=== PATIENT | male | born 1980 | race Caucasian/White ===

== ENCOUNTER 2023-04-18 09:31 | Emergency (ER) | payer BC, SELFPAY ==
[2023-04-18 09:48] VITALS: BP 157/100
[2023-04-18] MEDS: TORADOL 30 MG IM (10:38)
[2023-04-18 10:39] VITALS: BMI 26.1
[2023-04-18 12:13] VITALS: BP 146/93
--- NOTE | 2023-04-18 13:25 | ED.GENMED ---
History of Present Illness
General
Chief Complaint: Musculo-Skeletal Complaint
Source: patient
Exam Limitations: none
Time Seen by Provider: 04/18/23 09:56
Nursing documentation reviewed up to this point in time: agreed with
Travel History
Have you had any contact with someone who has COVID-19?: No
Do you have any symptoms of coronavirus? Fever > 100 degrees, chills, cough, shortness of breath, sore throat, loss of taste or smell, muscle aches, or headache?: No
History of Present Illness
History of Present Illness:
43 y/o M with h/o previous disc herniation lumbar (mri 15 years ago, had PT and pain got better)
2 weeks atraumatic left calf and knee pain
feels like an ache and sometimes burning pain; also sometimes has tingling to great toe on left foot
no fever, chills, incontinence, weakness, inabilty to walk, color change
the pain is worst with sitting
better with walking
had trouble sleeping last nght
went to PCP yesteray and got Medrol dose adry, tramadol and rx for mri which he got approved.
Past History
Past History
ED Past Medical History: Other (lumbar disc herniation)
ED Past Surgical History: None
Social History
Tobacco: Non-smoker
Drug: None
Personal:
Living: with family
Employment: Employed
Review of Systems
Review of Systems
Allergies reviewed?: Yes
All Other Systems: Not applicable
Phy Exam
Physical Exam
Physical Exam:
GENERAL: Alert , in no apparent distress, comfortable at rest
HEAD: NCAT
CARDIAC: Regular rate and rhythm, no edema, 2+ dp pulse
LUNGS: Clear breath sounds bilaterally, no acute respiratory distress, no wheezes/rales/rhonchi
ABDOMEN: Soft, without focal tenderness, no r/g, no cvat, normal bowel sounds, nondistended
NEUROLOGICAL: Alert and oriented, no focal neuro deficits, CN intact, 5/5 strength, sensation intact, able to ambulat, sensation grossyl intact
SKIN: Warm and dry, skin of lower leg normal
MUSCULOSKELETAL: No edema, well perfused. Normal inspection of the left hip, left leg
Patient has no tenderness to palpation of the hip, minimal tenderness in the SI joint
able to flex left hip an rotate without pain
Back: No midline tenderness, no swelling
pain in left back with straight leg raise on L
PSYCH: Normal and appropriate interaction.
Course
Orders/Labs/Results
Orders:
Orders
04/18/23 10:18
Lumbar Spine Complete, 4 View [CR Lumbar Spine Comp Min 4 Vw*] Urgent
Comment:
Reason For Exam: lower back pain
04/18/23 10:21
Tib/Fib, Left 2 View [CR Leg Tibia/fibula Left 2 Vw] Urgent
Comment:
Reason For Exam: left lower leg pain, no trauma
04/18/23 10:22
Ketorolac [Toradol] 30 mg IM NOW STA
04/18/23 10:51
Venous Doppler Lwr Ext Left [US Periph Venous LOWER Ext LT] Urgent
Comment:
Reason For Exam: left leg pain
Vital Signs
Initial and Last Documented VS:
Initial Vital Signs
Temp Pulse Resp BP Pulse Ox
97.7 F 83 14 157/100 100
04/18/23 09:48 04/18/23 09:48 04/18/23 09:48 04/18/23 09:48 04/18/23 09:48
Last Documented Vital Signs
Temp Pulse Resp BP Pulse Ox
97.7 F 64 16 146/93 98
04/18/23 09:48 04/18/23 12:13 04/18/23 12:13 04/18/23 12:13 04/18/23 12:13
MDM/Problems Addressed
Differential Diagnosis Includes:
Lumbar radiculopathy, DVT, muscle pain, gastrocnemius tear
MDM/Problems Addressed:
43-year-old male with atraumatic left calf and knee pain for the past 2 weeks. It does not seem to be radiating from his back but it is associated with the feeling of burning and sometimes tingling in the left great toe. It is worse with sitting
and better with standing. He saw his family doctor yesterday and was given a Medrol Dosepak which she started and tramadol which does help but when the tramadol wears off the pain returns. He is not having any weakness or swelling, color change,
incontinence but the pain kept him up last night so he came in. Patient has an MRI prescription but is waiting to get that scheduled. He has previously had an MRI of his lumbar spine showing a disc herniation which symptoms improved with physical
therapy. Patient never had any surgery. He has no red flag symptoms or signs, he is comfortable appearing, there is no swelling or skin changes to the calf. It was slightly tender to palpation of the left calf posteriorly along the gastrinomas
muscle which was not obviously torn. He has an intact Achilles, normal distal neuro and vascular exam. He did have a slightly positive left-sided straight leg raise, he had pain in his back but did not shoot down his leg. X-rays of his lumbar
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 His lower leg x-ray was negative and his ultrasound was negative. He felt improvement of symptoms with Toradol. Recommend to continue his steroids and add a stronger pain
medication. Counseled to return for worsening symptoms, otherwise he will obtain an outpatient MRI
*Critical Care Note
Total Time (30-74mins, 75-104mins- exclusive of procedures): Not Applicable
ED Attending Note
-
Portions of this chart may have been created with voice recognition software.� Occasional wrong word or��sound alike� substitutions may have occurred due to the inherent limitations of voice recognition software.
Discharge Plan
Departure
Patient Disposition: Home (Routine Discharge)
Date of Disposition: 04/18/23
Time of Disposition: 13:04
Patient with high blood pressure during this ER visit?: Yes
Condition: Fair
Covid-19: Not Applicable
Discharge Problem:
Acute leg pain, Acute left lumbar radiculopathy
Instructions: Radiculopathy (DC)
Prescriptions:
New
hydrocodone-acetaminophen 5-325 mg tablet
1 tab PO Q8H PRN (Reason: Pain) Qty: 12 0RF
Referrals:
Nikita Lopez MD [Active] - Follow up in 1 week (ortho spine)
Darwin Chery MD [Family Provider] - Follow up in 2-3 days
Activity Restrictions/Additional Instructions:
Your ultrasound was negative for blood clot. Your x-ray of your back showed some mild degenerative changes. It is possible that this pain is caused from a disc herniation or pinched nerves in your back. Continue your steroid pack as prescribed.
You can take 1 dose of ibuprofen daily if you need to as well. And for stronger pain you can either use the tramadol you have or you could use Vicodin 1 tablet every 6 hours. The Vicodin and the tramadol should not be taken together. This is only
if the pain is severe.
Follow-up with your family doctor. Also call the orthopedic doctor for follow-up and schedule your MRI. Return for severe pain, leg weakness, incontinence of urine or stool, worsening leg numbness, leg swelling or redness or any concerns
Interventions
Interventions:
*Risk Screen - Suicide Last Done: 04/18/23 10:39
*General Assessment Last Done: 04/18/23 10:39
*Neglect/Abuse Screening Last Done: 04/18/23 10:41
ED- Fall Risk Assessment Last Done: 04/18/23 10:39
*ED COVID-19 Vaccine History Last Done: 04/18/23 10:39
ED-Musculoskeletal Assessment Last Done: 04/18/23 10:39
== END 2023-04-18 13:31 | disposition home or self-care (01) ==
LOC: EMR 09:31
PROVIDERS: EMERGENCY PHYSICIAN Student in an Organized Health Care Education/Training Program; FAMILY PHYSICIAN Family Medicine
DX: M47.26 Other spondylosis with radiculopathy, lumbar region (principal); M79.662 Pain in left lower leg; I10 Essential (primary) hypertension
CPT/HCPCS: 99284; 96372; 72110; 73590; 93971

== ENCOUNTER → 2024-03-09 14:48 | Outpatient (REF) | payer BC, SELFPAY | LOC: HWRAD 14:48 | PROVIDERS: ATTENDING PHYSICIAN Family Medicine | DX: R59.1 Generalized enlarged lymph nodes (principal) | CPT/HCPCS: 76536 ==